=== PATIENT | female | born 1950 | race Caucasian/White ===

== ENCOUNTER → 2016-12-13 | Outpatient (CLI) | payer MEDICARE, OTHER ==
[~2016-12-13] MED LIST: ACETAMINOPHEN PO; ACETAMINOPHEN650 M1 PO; ALBUTEROL0.83 MG/ML NEB; AMLODIPINE BESY10 MG PO; AMLODIPINE BESYL5 MG PO; APAP325 MG PO; ASPIRIN81 M1 PO; BISACODYL10 MG/SUP3 RC; BISACODYL10 MG/SUPP; BONIVA150 MG PO; BUDESONIDE; BUDESONIDE0.5 MG/2 M INH; CALCIMAR200 IU/ML; CALCITRIOL 0.25 MCG; CALCITRIOL0.25 MCG PO; CALCITRIOL0.5 MCG PO; CALCIUM CA500 MG/5 M PO; CALCIUM CARB SUSP; CARBATROL300 MG; CARDURA1 M1; CARDURA1 MG PO; CATAPRES; CATAPRES-TTS-20.2 MG PO; CATAPRES0.1 MG PO; CENTRUM PO; CLEOCIN T60 GM TP; CLEOCIN-T60 GM EXT; CLONIDINE; CLONIDINE PO; CRANBERRY 425 MG; CRANBERRY400 M1 PO; DIPHENHYDRAMINE; DOXAZOSIN MESYLA1 MG PO; DRISDOL; DULCOLAX10 MG/SUPP PR; FAST RELIEF LAX10 MG PR; FAST RELIEF LAX10 MG RC; FERROUS SUL GT; FISH OIL 1,0001 EAC1 PO; FLONASE ALLERG9.9 ML; FLONASE16 GM; FORTEO2.4 ML SQ; GAS RELIEF40 MG/0.1 PO; GAS RELIEF40 MG/0.2 PO; GAS RELIEF40 MG/0.6; GENTLE LAXATIVE10 MG RC; HCTZ PO; IPRAT-ALBUT 0.5-3 ML IH; KCL PO; KEFLEX; LACTULOSE10 G/15 ML PO; LAMICTAL100 MG PO; LAMICTAL25 MG PO; LAMICTAL5 MG PO; LASIX20 MG PO; LEVOTHYROXINE150 MCG PO; LEVOXYL150 MC1 PO; LIPITOR20 MG DOB; LIPITOR20 MG PO; LIPITOR40 MG PO; LOPRESSOR PO; METFORMIN; METOPROLOL TAR100 MG PO; METOPROLOL TAR25 MG PO; METOPROLOL TART25 MG PO; MEVACOR PO; MIACALCIN4 ML; MIRALAX17 G2 PO; MIRALAX17 GM PO; MIRALAX255 GM; MIRALAX255 GM PO; MONTELUKAST SOD10 MG PO; MULTI-VITAMIN1 TAB; MYLANTA400 MG; MYLICON40 MG/0.1 PO; NAPROSYN500 MG PO; NEURONTIN PO; NEURONTIN100 MG PO; NORVASC; NORVASC10 MG PO; NYSTATIN5 ML PO; OMEGA 3 FISH OI1 CAP; OMEGA 3 FISH OI1 CAP PO; OXYGEN INH; PATADAY2.5 ML OP; PATANOL5 ML; POLYETHYLENE GLY1 G1 MC; POT CHLORIDE; POTASSIUM CHLO10 ME1 PO; PRILOSEC PO; PRILOSEC20 M1 PO; PROBIOTIC1 EACH PO; PULMICORT1 MG/2 ML IH; ROCALTROL0.5 MCG PO; SENNA CONCENTR8.6 MG PO; SENNA LAXATIVE8.6 M1 PO; SENNA PO; SENNA S TABLET1 TAB; SENNA8.6 M1 PO; SINGULAIR; SINGULAIR PO; SMZ-TMP PO; SYNTHROID; SYNTHROID PO; SYNTHROID175 MCG PO; SYNTHROID25 MCG PO; THERA M PLUS1 UDTA1 PO; THERAGRAN1 TAB; TRIPLE ANTIBIOT28 G1 TP; TRIPLE ANTIBIOT28 GM TP; UNITHROID150 MCG PO; VITAMIN C500 M1 PO; VITAMIN D1000 UNIT; VITAMIN D35000 UNI1 PO; VITAMIN D50000 UNIT PO; ZANTAC150 M1 PO; ZESTRIL2.5 M1 PO; ZESTRIL2.5 MG PO; ZYRTEC; ZZ-IMMUNOTHERAPY
[2016-12-13 18:20] LABS: BLOOD UREA NITROGEN 30 mg/dL (9-23); BUN/CREATININE RATIO 33.33; CALCIUM SERUM 9.5 mg/dL (8.4-10.2); CARBON DIOXIDE 28 mmol/L (22-31); CHLORIDE 104 mmol/L (100-111); CREATININE SERUM 0.9 mg/dL (0.6-1.4); GLOM FILT RATE Estimated ABOVE60 mL/min (>60); GLUCOSE FASTING 119 mg/dL (70-110); POTASSIUM 4.2 mmol/L (3.5-5.1); SODIUM 138 mmol/L (135-145)
== END | disposition home or self-care (01) ==
LOC: CHAZ 17:27
PROVIDERS: Internal Medicine
DX: E87.5 Hyperkalemia (principal)
CPT/HCPCS: 36415; 80048

== ENCOUNTER 2017-02-24 07:19 | Inpatient (IN) | payer MEDICARE, OTHER ==
--- NOTE | ~2017-02-24 | CR72 ---
[facility] A Service of [facility] & [facility] RADIOLOGY TEXT RESULTS PATIENT: SHAWNA TREVINO LOCATION: [facility] [id number] : 50 UNIT #: [id number] AGE: [address]: Mandeep Kline MD SEX: F ORDER DR: [id number] [facility] [address] [place], [place] [address] [id number] E MR#: [id number] Acc #: [id number] NAME: SHAWNA TREVINO : 1950 SEX: F STUDY DATE/TIME: 02/24/2017 8:08 UNIT: [facility] ROOM: STUDY DESCRIPTION: CR Chest Single View Portable Attending Physician: Delano Cole M.D. Ordering Physician: Delano Cole M.D. Primary Care Physician: Geraldine Lopez D.O. MEDICAL IMAGING REPORT This report is preliminary unless electronic signature is present EXAM Portable chest, 02/24 INDICATION Fever, hypoxia with a wet cough and that started 1 day ago. FINDINGS AP portable chest is compared with 11/06/2014. Lung volumes remain low. There is continued elevation of the left hemidiaphragm. Heart size is stable. There is some mild vascular congestion with chronic atelectasis in the bases. No pneumothorax. IMPRESSION Stable low-volume inspiration with chronic elevation of the left hemidiaphragm. There is chronic atelectasis in the bases and there is a mild degree of vascular congestion today. Dictated by... Alberto Wells Jr., M.D. THIS IS AN ELECTRONICALLY VERIFIED REPORT Alberto Wells Jr., M.D. at 02/24/2017 4:47 PM BILLY/brook TD: 02/24/2017 09:34 JOB #: [id number] MEDICAL IMAGING REPORT Page 1 of 1 COPY
--- NOTE | ~2017-02-24 | CO ---
Unit #: [id number] #: [id number] Patient: SHAWNA TREVINO [id number] [facility]. [place], [place] [address] [id number] I MR#: [id number] NAME: SHAWNA TREVINO ROOM: [facility] Age: 66 Sex: F Admission Date: 02/24/2017 : 1950 Attending Physician: Mandeep Kline M.D. Primary Care Physician: Geraldine Lopez D.O. CONSULTATION REPORT HISTORY OF PRESENT ILLNESS She is a 66-year-old [facility]. Apparently, she had become more congested, short of breath with low oxygen saturations and was sent here to the emergency room at [facility] and has been admitted for possible pneumonia. Chest x-ray shows low lung volumes, possibly some mild interstitial infiltrates. Arterial blood gases revealed pH 7.44, pCO2 of 45, pO2 of 50 on 3 L. Chemistries were unremarkable. BNP was 60. Lactic acid level was 0.7. Coagulation studies were normal. White blood cell count was 8800, hematocrit was 43.1, platelet count was 131,000. PAST MEDICAL HISTORY Profound mental retardation, thrombophilia, history of recurrent urinary tract infections, history of hypertension, hypothyroidism, history of elevated LFTs, history of gastritis in the past, history of horseshoe kidney with kidney stones. HOME MEDICATIONS Norvasc, atorvastatin, bisacodyl, calcitriol, clonidine, doxazosin, fish oil, Neurontin, Gas Relief, Synthroid, lisinopril, metoprolol, Singulair, polyethylene glycol, Zantac, senna, Thera/beta carotene, vitamin D3, budesonide nebulizer b.i.d., albuterol q.i.d. as needed. ALLERGIES Invanz, penicillin, Macrodantin. SOCIAL HISTORY Resident of a [facility], had been in [place]. FAMILY HISTORY Unknown, the patient is nonverbal. REVIEW OF SYSTEMS Unobtainable, the patient is nonverbal. PHYSICAL EXAMINATION GENERAL: White female, lying in bed, in no distress, wearing supplemental oxygen. VITAL SIGNS: Blood pressure is 95/55, pulse 61, respiratory rate 16, afebrile. HEENT: Normocephalic and atraumatic. Pupils are round and reactive. Sclerae nonicteric. Nasal passages patent. She appears to be edentulous, does not open mouth at request. NECK: Supple. Trachea midline. LUNGS: Scattered rhonchi. Unit #: [id number] #: [id number] Patient: SHAWNA TREVINO CARDIAC: Regular rate and rhythm. Could not appreciate murmur, rub, or gallop. ABDOMEN: Nontender. Bowel sounds present. G-tube in place. No hepatosplenomegaly. EXTREMITIES: With trace edema. Some deformities. SKIN: Warm and dry. PSYCHIATRIC: Affect calm. DIAGNOSTIC STUDIES LABORATORY RESULTS: Reviewed, as noted. IMPRESSION 1. Acute hypoxemic respiratory failure. 2. Possible healthcare acquired pneumonia, gram-negative for methicillin-resistant Staphylococcus aureus likely aspiration related. 3. History of recurrent aspiration, requiring gastrostomy tube. 4. History of urinary tract infections. 5. Hypertension. 6. Hypothyroidism. 7. History of gastritis. PLAN We will cover with broad-spectrum antibiotics. Recheck chest x-ray in the morning. Check procalcitonin levels. O2 to maintain adequate saturations. Further recommendations pending this. Dictated by... Kya Gaspar/cheri TD: 02/25/2017 04:09 JOB #: [id number] CONSULTATION REPORT Page 1 of 1 X Neal Alegria MD X CONSULTATION REPORT
--- NOTE | ~2017-02-24 | XA166 ---
[facility] A Service of [facility] & [facility] RADIOLOGY TEXT RESULTS PATIENT: SHAWNA TREVINO LOCATION: C3A 315- : [birth year] UNIT #: [id number] AGE: [address]: Mandeep Kline MD SEX: F ORDER DR: [id number] [facility]. [place], [place] [address] [id number] I MR#: [id number] Acc #: [id number] NAME: SHAWNA TREVINO : 1950 SEX: F STUDY DATE/TIME: 02/25/2017 13:30 UNIT: [facility] PCU ROOM: [facility] STUDY DESCRIPTION: XA PICC Line Placement WO Port Attending Physician: Mandeep Kline M.D. Ordering Physician: Mandeep Kline M.D. Primary Care Physician: Geraldine Lopez D.O. MEDICAL IMAGING REPORT This report is preliminary unless electronic signature is present EXAM XA PICC line placement without port. DATE OF EXAM 02/25/2017 INDICATION IV access. PRE-PROCEDURE The procedure was explained to the patient and/or patient commercial representative including risks, benefits, potential complications and potential for alternative forms of treatment. Informed consent was obtained, and prior to initiating the procedure a formal timeout procedure was performed. PROCEDURE Using full standard sterile barrier technique, including caps, gowns, gloves, masks, as well as sterile skin preparation and standard sterile draping, the left arm (basilic vein) was prepped and draped in the usual fashion, and real-time sterile ultrasound guidance was used to localize an arm vein and to confirm vessel patency. A hard copy ultrasound image was recorded. After local anesthesia with 1% Xylocaine, the vein was punctured using real-time sterile ultrasound guidance, and an 0.018 guidewire was advanced into the superior vena cava, using fluoroscopic guidance. A 5-Mauritian double-lumen PICC was then measured and deployed with the tip positioned in the superior vena cava. The position of the line was documented with a radiographic image. The line was secured in place with an adhesive dressing and an antibiotic patch was applied. Total fluoro time was 2.1 minutes. The Reference air kerma is 9 mGy. Initial attempt was made to place a right-sided PICC line. The right [facility] A Service of [facility] RADIOLOGY TEXT RESULTS PATIENT: SHAWNA TREVINO LOCATION: [facility] 315-01 : [birth year] UNIT #: [id number] AGE: [address]: Mandeep Kline MD SEX: F ORDER DR: basilic vein was initially accessed, however, the guidewire buckled near the axilla. 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 If subsequent future PICC lines are needed, the patient is not a candidate for a right-sided PICC line due to chronic occlusion, however, at this point in time, she remains a candidate for a left-sided PICC line. IMPRESSION Successful placement of a 5-Mauritian double-lumen PowerPICC via the left arm (basilic vein) under ultrasound and fluoroscopic guidance. The tip of the PICC is in good position in the superior vena cava. A single fluoroscopic spot image was obtained. Dictated by... Todd Myers M.D. THIS IS AN ELECTRONICALLY VERIFIED REPORT Todd Myers M.D. at 02/26/2017 4:53 PM Bryan TD: 02/25/2017 20:05 JOB #: [id number] MEDICAL IMAGING REPORT Page 1 of 1 COPY
--- NOTE | ~2017-02-24 | EKG ---
PATIENT: SHAWNA TREVINO UNIT #: [id number] Ventricular Rate: 67 BPM Atrial Rate: 67 BPM P-R Interval: 202 ms QRS Duration: 86 ms Q-T Interval: 390 ms QTC Calculation(Bezet): 412 ms P [place]: -2 degrees Calculated R [place]: 3 degrees Calculated T [place]: 44 degrees Diagnosis Line: Normal sinus rhythm Diagnosis Line: Low voltage QRS Diagnosis Line: Otherwise normal ECG Diagnosis Line: When compared with ECG of 03-NOV-2014 09:55, Diagnosis Line: No significant change was found Diagnosis Line: Confirmed by NICOLETTE FELIPE MD ([id number]) on 02/25/2017 Diagnosis Line: 9:59:37 AM INTERPRETING MD: DESTINEE DE LEON
--- NOTE | ~2017-02-24 | CT57 ---
[facility] A Service of [facility] & [facility] RADIOLOGY TEXT RESULTS PATIENT: SHAWNA TREVINO LOCATION: [facility] [address]-30 : [birth year] UNIT #: [id number] AGE: [address]: Mandeep Kline MD SEX: F ORDER DR: [id number] [facility] [address] [place], [place] [address] [id number] I MR#: [id number] Acc #: [id number] NAME: SHAWNA TREVINO : 1950 SEX: F STUDY DATE/TIME: 02/24/2017 UNIT: [facility] ROOM: [id number] STUDY DESCRIPTION: CT Chest Wo Cont Attending Physician: Mandeep Kline M.D. Ordering Physician: Ashish Serrato M.D. Primary Care Physician: Geraldine Lopez D.O. MEDICAL IMAGING REPORT This report is preliminary unless electronic signature is present EXAM CT chest without contrast 02/24/2017 12:12 hours HISTORY 66-year-old with acute hypoxic respiratory failure today, fever, cough and low oxygen saturation level. COMPARISON Chest CT 10/16/2014 and chest x-ray 02/24/2017 TECHNIQUE Helical noncontrasted images were obtained from the thoracic inlet through the adrenal glands. Sagittal and coronal reconstructions were performed. Total exam DLP 749 mGy-cm. The CT exam was performed with one or more of the following radiation dose reduction techniques: automatic exposure control, adjustment of mA and/or kV according to patient size, and iterative reconstruction. FINDINGS Images through the thoracic inlet demonstrate no thyroid mass or supraclavicular adenopathy. Images through the chest demonstrate a tortuous aorta with mild ectasia measuring 3.6 cm similar to prior study. Pulmonary arteries, cardiac chambers and pericardium are normal. The esophagus is normal. There are benign calcified precarinal, subcarinal and right infrahilar nodes without change. The lungs demonstrate calcified granulomata. There is vascular crowding at the bases but no definite evidence of pneumonia, edema or pleural fluid. There is mild right-sided pleural thickening in the mid hemithorax which is felt likely chronic. [facility] A Service of [facility] & [facility] RADIOLOGY TEXT RESULTS PATIENT: SHAWNA TREVINO [facility] [address]-44 : [birth year] UNIT #: [id number] AGE: [address]: Mandeep Kline MD SEX: F ORDER DR: Limited views through the upper abdomen demonstrate pneumobilia which is unchanged. I believe the gallbladder is present with calcifications at the fundus of the gallbladder partially demonstrate on this exam but degraded by motion. This could indicate the presence of underlying gallstone or partial calcification of the gallbladder wall. A gastrostomy tube is present within the stomach. IMPRESSION 1. There is ectasia of the ascending aorta measuring up to 3.6 cm unchanged. 2. Stable elevation of the left hemidiaphragm with no acute pulmonary or pleural findings. There is underlying benign calcified granulomatous change. 3. There is stable pneumobilia. 4. There is calcification at the fundus of the gallbladder which could represent calcified stone or partial calcification of the gallbladder wall which is favored. There is motion artifact on the images through the upper abdomen and this is difficult to assess. It is felt likely to be present on 10/16/2014 as well. 5. Gastrostomy tube is well positioned within the stomach. Dictated by... Aleshia Santizo M.D. THIS IS AN ELECTRONICALLY VERIFIED REPORT Aleshia Santizo M.D. at 02/24/2017 2:29 PM JAHM/divya TD: 02/24/2017 13:58 JOB #: [id number] MEDICAL IMAGING REPORT Page 1 of 1 COPY
--- NOTE | ~2017-02-24 | HP ---
Unit #: [id number] #: [id number] Patient: SHAWNA DILLARD [id number] [address] [address] [id number] I MR#: [id number] NAME: SHAWNA DILLARD ROOM: [facility] Age: 66 Sex: F Admission Date: 02/24/2017 : 1950 Attending Physician: Mandeep Kline M.D. Primary Care Physician: Geraldine Lopez D.O. HISTORY AND PHYSICAL ADMISSION DIAGNOSES 1. Acute hypoxemic respiratory failure. 2. Healthcare-acquired pneumonia. 3. Urinary tract infection. 4. History of mental retardation. 5. History of hypothyroidism. 6. Hypertension. 7. History of thrombophilia. HISTORY OF PRESENT ILLNESS Ms. Dillard is a 66-year-old female, resident of [facility], with a past medical history of mental retardation and thrombophilia, who was brought to the emergency room secondary to increasing upper congestion and dyspnea. Initial evaluation in the emergency room was significant for hypoxemic respiratory failure with a PO2 of 50.5 on ABGs, along with hypercarbic respiratory failure with a PCO2 of 45.4. Chest x-ray was read as atelectasis. However, a clinical diagnosis of healthcare-acquired pneumonia was made secondary to acute hypoxemic respiratory failure, along with clinical findings of some increasing rhonchi on exam. Again, patient is mentally retarded. Therefore, there is no communication available with the patient. She is nonverbal. There is an aide present in the room with limited information. Therefore, I am not able to obtain any further clear history, neither am I able to obtain any review of systems. PAST MEDICAL HISTORY 1. Mental retardation. 2. Respiratory failure in the past. 3. Multiple UTIs. 4. Hypertension. 5. Hypothyroidism. 6. Thrombophilia. 7. Chronically elevated LFTs. 8. Multiple flexion contractures. 9. Dysphagia with PEG tube. HOME MEDICATIONS 1. Amlodipine. 2. Lipitor. 3. Bisacodyl. 4. Calcitriol. 5. Catapres. Unit #: [id number] #: [id number] Patient: DESGROSIELLIER,SHAWNA 6. Doxazosin. 7. Fish oil. 8. Neurontin. 9. Mylicon. 10. Levothyroxine. 11. Zestril. 12. Metoprolol. 13. Singulair. 14. MiraLax. 15. Zantac. 16. Senna. 17. Vitamin D. 18. Pulmicort. ALLERGIES Penicillin, nitrofurantoin, and ertapenem. SOCIAL HISTORY Again, resident of longterm. FAMILY HISTORY Unremarkable. PHYSICAL EXAMINATION GENERAL: Patient is a 66-year-old female in no acute distress. VITAL SIGNS: Blood pressure 146/92, heart rate 84, respirations 20, temperature 100.6, and she is saturating 95% on 4 liters per nasal cannula. HEENT: Head is atraumatic. Pupils equal, round, and reactive to light. Oropharynx is clear. NECK: Supple. No mass, no JVD, no bruits. CHEST: Diminished bilaterally with some increasing rhonchi on the right more than left. CARDIOVASCULAR: S1 and S2. No murmurs. ABDOMEN: Obese, soft, and nontender. Bowel sounds are diminished. LOWER EXTREMITIES: Without any significant cyanosis, clubbing, or edema. There are contractures in both upper and lower extremities. NEUROLOGIC: Unobtainable secondary to patient's previous history of mental retardation. DIAGNOSTIC STUDIES LABORATORY: ABG again shows pH of 7.441, PCO2 of 45.4, and PO2 of 50.5. Chemistry basically unremarkable except for albumin of 3 and alkaline phosphatase of 144. Lactic acid is 0.6. Coagulation panel unremarkable. Set of cardiac enzymes negative. Hematology shows platelets of 131,000, otherwise unremarkable. Urinalysis significant for 3+ leukocyte esterase, positive nitrites, 50-100 WBCs, and 2+ bacteria. Blood culture pending. Urine culture pending. ASSESSMENT AND PLAN 1. Acute hypoxemic, hypercarbic respiratory failure. Continue bronchodilators. Continue oxygen per nasal cannula. Pulmonary follows. 2. Healthcare-acquired pneumonia. Continue IV vancomycin and Azactam per Pulmonary recommendations. 3. Urinary tract infection. Will start her on cefepime. 4. History of mental retardation. 5. Hypertension. Continue home medications. 6. Dyslipidemia. Continue home medications. Unit #: [id number] #: [id number] Patient: SHAWNA DILLARD 7. Hypothyroidism. Continue home Synthroid. 8. Gastrointestinal and deep venous thrombosis prophylaxis with some Pepcid and Lovenox. 1. Dictated by Kya Parra/violeta TD: 02/24/2017 21:46 JOB #: [id number] HISTORY AND PHYSICAL Page 1 of 1 X Mandeep Kline MD X HISTORY AND PHYSICAL
--- NOTE | ~2017-02-24 | DS ---
Unit #: [id number] #: [id number] Patient: SHAWNA TREVINO [id number] [address] [id number] I MR#: [id number] NAME: SHAWNA TREVINO ROOM: [facility] Age: 66 Sex: F Admission Date: 02/24/2017 : 1950 Discharge Date: 03/02/2017 Attending Physician: Mandeep Kline M.D. Primary Care Physician: Geraldine Lopez D.O. DISCHARGE SUMMARY DISCHARGE DIAGNOSES 1. Urinary tract infection. 2. Status post acute respiratory failure. 3. History of mental retardation. 4. Hypertension. 5. History of thrombophilia. 6. Hypothyroidism. DISCHARGE MEDICATIONS 1. Combivent inhaler q.4 hours p.r.n. shortness of air. 2. Pulmicort inhaler b.i.d. 3. Tylenol p.r.n. 4. Neurontin 200 mg t.i.d. 5. Simethicone 40 mg b.i.d. 6. Amlodipine 10 mg daily. 7. Metoprolol 25 mg b.i.d. 8. Bisacodyl 10 mg per rectum daily. 9. MiraLAX 17 gram daily. 10. Senokot 8.6 mg daily. 11. Atorvastatin 40 mg daily. 12. Clonidine 0.2 mg b.i.d. 13. Doxazosin 1 mg daily. 14. Lisinopril 2.5 mg daily. 15. Fish oil. 16. Pepcid 20 mg daily. 17. Singulair 10 mg daily. 18. Synthroid 150 mcg daily. 19. Calcitriol 0.5 mcg p.o. "q.i.d." 20. Vitamin D3 - 5,000 units daily. 21. Aztreonam 2 grams IV t.i.d. Discontinue after completion of today's dose. CONSULTS ON THIS HOSPITAL STAY Dr. Alegria, pulmonary. DIAGNOSTIC STUDIES IMAGING: CT chest without contrast - Ascending aortic ectasia at 3.6 cm. Calcified granulomatous changes. Calcification at the fundus of the gallbladder. Motion artifact. Likely was present at the September 2014 evaluation. Chest x-ray - Unremarkable. LABORATORY: Urine culture - E-coli. Unit #: [id number] #: [id number] Patient: SHAWNA TREVINO HISTORY OF PRESENT HOSPITAL STAY Please refer to H and P done by me for initial presentation on this female. ACTIVE PROBLEMS AND DIAGNOSES ON THIS HOSPITAL STAY UTI. Continue aztreonam. Finish today's dose for a total of 7 days. Afebrile. White count 5.1. Stable. Status post respiratory failure. Stable. Status post evaluation per pulmonary. Continue bronchodilator. History of mental retardation. Hypertension. Stable. History of thrombophilia. Hypothyroidism. Continue home meds. DISPOSITION Going back to [facility]. FOLLOWUP Followup with primary care physician there. Dictated by... Kya Parra/justen TD: 03/02/2017 12:18 JOB #: [id number] DISCHARGE SUMMARY Page 1 of 1 X Mandeep Kline MD X DISCHARGE SUMMARY
[~2017-02-24 07:19] MED LIST changes: -AMLODIPINE BESY10 MG PO; -BUDESONIDE0.5 MG/2 M INH; -DOXAZOSIN MESYLA1 MG PO; -FAST RELIEF LAX10 MG PR; -FISH OIL 1,0001 EAC1 PO; -LEVOXYL150 MC1 PO; -LIPITOR40 MG PO; -MIRALAX17 GM PO; -MYLICON40 MG/0.1 PO; -ROCALTROL0.5 MCG PO; -VITAMIN D35000 UNI1 PO; -ZANTAC150 M1 PO; -ZESTRIL2.5 MG PO
[2017-02-24 08:31] LABS: BASOPHIL% 0.3 % (0-2.5); EOSINOPHIL# 0.1 X10e3 (0-0.7); EOSINOPHIL% 1.7 % (0.0-7.0); HEMATOCRIT 43.1 % (35.0-45.0); HEMOGLOBIN 14.2 gm/dL (12.0-16.0); LYMPHOCYTE# 0.8 X10e3 (1.0-3.5); LYMPHOCYTE% 9.2 % (17.0-45.0); MEAN CELL VOLUME 90.2 FL (83-96); MEAN CORPUSCULAR HEMOGLOBIN 29.7 PG (28-34); MEAN CORPUSCULAR HGB CONC 32.9 g/dL (30-36); MEAN PLATELET VOLUME 7.7 FL (6.5-11.5); MONOCYTE# 1.1 X10e3 (0-1.0); MONOCYTE% 12.3 % (3.0-12.0); NEUTROPHIL# 6.7 X10e3 (1.5-7.1); NEUTROPHIL% 76.5 % (40-75); PLATELET COUNT 131 X10e3 (140-420); RED BLOOD COUNT 4.77 X10e (3.90-5.30); RED CELL DISTRIBUTION WIDTH 14.4 % (11.0-15.5); WHITE BLOOD COUNT 8.8 X10e3 (4.0-10.5)
[2017-02-24 08:32] LABS: DIFF IND NO
[2017-02-24 08:35] LABS: ARTERIAL BLD GAS O2 SATURATION 85.4 % (90.0-100.0); ARTERIAL BLOOD GAS CARBOXY HB 1.1 %sat (0.0-9.0); ARTERIAL BLOOD GAS HCO3 30.9 mmol/L; ARTERIAL BLOOD GAS MET HB 0.6 %sat (0.0-2.0); ARTERIAL BLOOD GAS PCO2 45.4 mmHg (35.0-45.0); ARTERIAL BLOOD GAS pH 7.441 (7.350-7.450)
[2017-02-24 08:36] LABS: ARTERIAL BLOOD GAS ART SITE LEFT BRACHIAL; ARTERIAL BLOOD GAS DELIVERY NASAL CANNULA; ARTERIAL BLOOD GAS PO2 50.5 mmHg (80.0-100); ARTERIAL DRAW? YES
[2017-02-24 08:41] LABS: INFLUENZA A NEG (NEG); INFLUENZA B NEG (NEG)
[2017-02-24 08:44] LABS: PARTIAL THROMBOPLASTIN TIME 26.7 SECONDS (23.5-31.3); PROTHROMBIN TIME (PATIENT) 10.7 SECONDS (9.6-11.5)
[2017-02-24 08:53] LABS: BILIRUBIN, DIRECT 0.1 mg/dL (0.0-0.2); BILIRUBIN,INDIRECT 0.2 mg/dL (0.0-0.9); BILIRUBIN,TOTAL 0.3 mg/dL (0.2-2.0); BUN/CREATININE RATIO 17.77; CALCIUM SERUM 9.2 mg/dL (8.4-10.2); CREATININE SERUM 0.9 mg/dL (0.6-1.4); GLOM FILT RATE Estimated 66.7 mL/min (>60); POTASSIUM 3.7 mmol/L (3.5-5.1); PROTEIN TOTAL SERUM 6.1 g/dL (6.0-8.3)
[2017-02-24 09:11] LABS: POC - CKMB <1.0 ng/mL (0.0-7.9); POC - TROPONIN <0.05 ng/mL (<=0.05)
[2017-02-24 09:32] LABS: URINE SOURCE CLEAN CATCH
[2017-02-24 09:39] LABS: URINE APPEARANCE TURBID; URINE BILIRUBIN NEG (NEG); URINE BLOOD 1+ (NEG); URINE COLOR YELLOW; URINE GLUCOSE NEG (NEG); URINE KETONE NEG (NEG); URINE LEUKOCYTE ESTERASE 3+ (NEG); URINE NITRATE POS (NEG); URINE PH 5.5 (5-8); URINE PROTEIN NEG (NEG); URINE UROBILINOGEN 0.2 MG/DL (NEG)
[2017-02-24 09:42] LABS: CULTURE INDICATED? YES; URINE SQUAMOUS EPITHELIAL CELL MOD /[HPF]
[2017-02-24 09:52] LABS: UWBCS1 AUWI 50-100 (0-5)
[2017-02-24 09:53] LABS: URINE BACTERIA AUWI 2+ (NEGATIVE)
[2017-02-24 10:13] LABS: POC - CKMB <1.0 ng/mL (0.0-7.9); POC - TROPONIN <0.05 ng/mL (<=0.05)
[2017-02-24] MEDS ORDERED: AMLODIPINE BESY10 MG PO (12:22)
[2017-02-24] MEDS ORDERED: LIPITOR40 MG PO (12:22)
[2017-02-24] MEDS ORDERED: FAST RELIEF LAX10 MG PR (12:23)
[2017-02-24] MEDS ORDERED: ROCALTROL0.5 MCG PO (12:24)
[2017-02-24] MEDS ORDERED: CLONIDINE PO (12:24)
[2017-02-24] MEDS ORDERED: DOXAZOSIN MESYLA1 MG PO (12:25)
[2017-02-24] MEDS ORDERED: FISH OIL 1,0001 EAC1 PO (12:26)
[2017-02-24] MEDS ORDERED: NEURONTIN100 MG PO (12:27)
[2017-02-24] MEDS ORDERED: MYLICON40 MG/0.1 PO (12:29)
[2017-02-24] MEDS ORDERED: ZESTRIL2.5 MG PO (12:30)
[2017-02-24] MEDS ORDERED: LEVOXYL150 MC1 PO (12:30)
[2017-02-24] MEDS ORDERED: METOPROLOL TAR25 MG PO (12:31)
[2017-02-24] MEDS ORDERED: SINGULAIR PO (12:31)
[2017-02-24] MEDS ORDERED: MIRALAX17 GM PO (12:32)
[2017-02-24] MEDS ORDERED: SENNA8.6 M1 PO (12:32)
[2017-02-24] MEDS ORDERED: ZANTAC150 M1 PO (12:32)
[2017-02-24] MEDS ORDERED: VITAMIN D35000 UNI1 PO (12:33)
[2017-02-24] MEDS ORDERED: BUDESONIDE0.5 MG/2 M INH (12:34)
[2017-02-26 07:11] LABS: HEMATOCRIT 41.4 % (35.0-45.0); HEMOGLOBIN 13.6 gm/dL (12.0-16.0); MEAN CORPUSCULAR HEMOGLOBIN 29.8 PG (28-34); MEAN CORPUSCULAR HGB CONC 32.8 g/dL (30-36); MEAN PLATELET VOLUME 7.4 FL (6.5-11.5); RED BLOOD COUNT 4.55 X10e (3.90-5.30); RED CELL DISTRIBUTION WIDTH 14.9 % (11.0-15.5); WHITE BLOOD COUNT 7.2 X10e3 (4.0-10.5)
[2017-02-26 08:03] LABS: BUN/CREATININE RATIO 22.5; CALCIUM SERUM 8.5 mg/dL (8.4-10.2); CREATININE SERUM 0.8 mg/dL (0.6-1.4); GLOM FILT RATE Estimated 76.9 mL/min (>60); POTASSIUM 3.4 mmol/L (3.5-5.1)
[2017-02-27 06:24] LABS: BUN/CREATININE RATIO 27.14; CALCIUM SERUM 8.4 mg/dL (8.4-10.2); CREATININE SERUM 0.7 mg/dL (0.6-1.4); GLOM FILT RATE Estimated 90.3 mL/min (>60); MAGNESIUM 1.8 mg/dL (1.6-3.0)
[2017-02-28 05:43] LABS: HEMATOCRIT 40.5 % (35.0-45.0); MEAN CELL VOLUME 91.9 FL (83-96); MEAN CORPUSCULAR HEMOGLOBIN 29.5 PG (28-34); MEAN CORPUSCULAR HGB CONC 32.1 g/dL (30-36); MEAN PLATELET VOLUME 7.5 FL (6.5-11.5); RED BLOOD COUNT 4.4 X10e (3.90-5.30); RED CELL DISTRIBUTION WIDTH 15.1 % (11.0-15.5); WHITE BLOOD COUNT 5.1 X10e3 (4.0-10.5)
[2017-02-28 06:19] LABS: BUN/CREATININE RATIO 31.42; CALCIUM SERUM 8.2 mg/dL (8.4-10.2); CREATININE SERUM 0.7 mg/dL (0.6-1.4); GLOM FILT RATE Estimated 90.3 mL/min (>60); MAGNESIUM 2.2 mg/dL (1.6-3.0); POTASSIUM 3.8 mmol/L (3.5-5.1)
[2017-03-01 08:34] LABS: MAGNESIUM 1.8 mg/dL (1.6-3.0); POTASSIUM 3.6 mmol/L (3.5-5.1)
[2017-03-02 06:33] LABS: HEMATOCRIT 42.1 % (35.0-45.0); HEMOGLOBIN 13.6 gm/dL (12.0-16.0); MEAN CELL VOLUME 91.9 FL (83-96); MEAN CORPUSCULAR HEMOGLOBIN 29.6 PG (28-34); MEAN CORPUSCULAR HGB CONC 32.2 g/dL (30-36); MEAN PLATELET VOLUME 8.1 FL (6.5-11.5); RED BLOOD COUNT 4.58 X10e (3.90-5.30); RED CELL DISTRIBUTION WIDTH 14.8 % (11.0-15.5); WHITE BLOOD COUNT 5.1 X10e3 (4.0-10.5)
[2017-03-02 07:22] LABS: CALCIUM SERUM 8.4 mg/dL (8.4-10.2); CREATININE SERUM 0.8 mg/dL (0.6-1.4); GLOM FILT RATE Estimated 76.9 mL/min (>60); MAGNESIUM 2.2 mg/dL (1.6-3.0); POTASSIUM 4.2 mmol/L (3.5-5.1)
== END 2017-03-02 14:32 | DRG 189 ==
LOC: CED 07:19 → CEDOF 10:35 → C3A PCU 10:35 → CED 10:51 → CEDOF 10:51 → C3A PCU 10:51 → CEDOF 17:39 → C3A PCU 03-02 14:32
PROVIDERS: Emergency Medicine; Hospitalist
PROC: 02HV33Z Insertion of Infusion Device into Superior Vena Cava, Percutaneous Approach (ICD-10-PCS; principal; 2017-02-24)
PROC: B548ZZA Ultrasonography of Superior Vena Cava, Guidance (ICD-10-PCS; 2017-02-24)
DX: J96.01 Acute respiratory failure with hypoxia (principal); E87.0 Hyperosmolality and hypernatremia; D68.59 Other primary thrombophilia; T17.900A Unspecified foreign body in respiratory tract, part unspecified causing asphyxiation, initial encounter; N39.0 Urinary tract infection, site not specified; J96.02 Acute respiratory failure with hypercapnia; B96.89 Other specified bacterial agents as the cause of diseases classified elsewhere; F79 Unspecified intellectual disabilities; I10 Essential (primary) hypertension; E03.9 Hypothyroidism, unspecified; X58.XXXA Exposure to other specified factors, initial encounter; Z93.1 Gastrostomy status; Z88.0 Allergy status to penicillin; Z88.8 Allergy status to other drugs, medicaments and biological substances; Z87.442 Personal history of urinary calculi; Z87.440 Personal history of urinary (tract) infections
CPT/HCPCS: 36415; 36600; 51701; 71010; 71250; 75820; 76937; 77001; 80048; 80076; 81003; 82308; 82553; 82803; 83605; 83735; 83880; 84132; 84484; 85025; 85027; 85610; 85730; 87040; 87086; 87088; 87186; 87804; 93005; 94640; 94760; 96361; 96365; 96366; 99285; J1650; J3370; J3475; Q9967

== ENCOUNTER → 2017-03-12 | Outpatient (CLI) | payer MEDICARE, OTHER ==
[~2017-03-12] MED LIST changes: +AMLODIPINE BESY10 MG PO; +BUDESONIDE0.5 MG/2 M INH; +DOXAZOSIN MESYLA1 MG PO; +FAST RELIEF LAX10 MG PR; +FISH OIL 1,0001 EAC1 PO; +LEVOXYL150 MC1 PO; +LIPITOR40 MG PO; +MIRALAX17 GM PO; +MYLICON40 MG/0.1 PO; +ROCALTROL0.5 MCG PO; +VITAMIN D35000 UNI1 PO; +ZANTAC150 M1 PO; +ZESTRIL2.5 MG PO
--- NOTE | ~2017-03-12 | US17 ---
[facility] A Service of [facility] & [facility] RADIOLOGY TEXT RESULTS PATIENT: SHAWNA TREVINO LOCATION: [facility] : [birth year] UNIT #: [id number] AGE: [address]: Ashish Murrell MD SEX: F ORDER DR: [id number] [place], [place] [address] [id number] O MR#: [id number] Acc #: [id number] NAME: SHAWNA TREVINO : 1950 SEX: F STUDY DATE/TIME: 03/12/2017 14:47 UNIT: [facility] ROOM: STUDY DESCRIPTION: US Breast Bilateral Attending Physician: Ashish Murrell Sr., M.D. Referring Physician: Ashish Murrell Sr., M.D. Ordering Physician: Ashish Murrell Sr., M.D. Primary Care Physician: Geraldine Lopez D.O. MEDICAL IMAGING REPORT This report is preliminary unless electronic signature is present EXAM Bilateral screening breast ultrasound. DATE 03/12/2017 HISTORY 66-year-old [employer] patient presenting for routine breast screening. No documented current complaints. Ultrasound screening was performed due to the patient's inability to tolerate standard screening mammography. COMPARISON Bilateral screening breast ultrasound, 12/28/2012. FINDINGS In the right breast, a hypoechoic, well-circumscribed nodule is seen approximately 1 cm deep to the skin surface at the 11 o'clock axis 7 cm deep to the nipple measuring 4 x 3 x 2 mm. It is not documented or not seen on the 2013 examination. An additional hypoechoic, well-circumscribed, oval nodule is seen in the 11 o'clock axis right breast 13 cm deep to the nipple, approximately 1 cm deep to the skin surface measuring 4 x 1 x 3 mm. It is either new or not seen on the previous 2013 ultrasound. Benign etiology such as a mildly complex cysts are favored. There is either cystic change or a focally dilated short ductal segment of the retroareolar right breast without intraductal nodularity. Within the left breast at approximately the 11 o'clock axis, 15 cm from the nipple, a well-circumscribed oval increased echogenicity 8 x 3 x 7 mm lesion is seen, 15 cm deep to the nipple. Without acoustic shadowing without hypervascularity, and with some enhanced acoustic transmission, favored to represent benign lipoma. No suspicious solid left breast STS. [facility] A Service of [facility] & [facility] RADIOLOGY TEXT RESULTS PATIENT: SHAWNA TREVINO LOCATION: [facility] : [birth year] UNIT #: [id number] AGE: [address]: Ashish Murrell MD SEX: F ORDER DR: nodules are identified. No architectural distortion or suspicious microcalcifications seen within either breast. IMPRESSION BIRADS category 3 F6. Probably benign finding. There are 2 small hypoechoic circumscribed nodules in the 11 o'clock axis of the right breast measuring about 4 mm each. These are favored to represent mildly complex cysts. Diagnostic right breast ultrasound followup in 6 months is recommended to document stability, improvement or resolution of these lesions. Benign finding of lipoma in the left breast. No suspicious abnormalities in the left breast. 6-month followup recommended Patients over the age of 40 are entered into a reminder system with target due date for the next mammogram. A result letter will also be sent to the patient. BIRADS: 3 Probably benign finding; short interval follow-up suggested. Dictated by... Darlene Calvo M.D. THIS IS AN ELECTRONICALLY VERIFIED REPORT Darlene Calvo M.D. at 03/13/2017 2:23 PM NANCY/ariana TD: 03/12/2017 16:42 JOB #: [id number] MEDICAL IMAGING REPORT Page 1 of 1 COPY
== END | disposition home or self-care (01) ==
LOC: CGUS 14:25
DX: Z12.31 Encounter for screening mammogram for malignant neoplasm of breast (principal); N63 Unspecified lump in breast
CPT/HCPCS: 76641

== ENCOUNTER → 2017-03-24 | Outpatient (CLI) | payer MEDICARE, OTHER | END | disposition home or self-care (01) | LOC: CSSDAY 09:00 | DX: M81.0 Age-related osteoporosis without current pathological fracture (principal) | CPT/HCPCS: 96372; J0897 ==

== ENCOUNTER → 2017-04-13 | Outpatient (CLI) | payer MEDICARE, OTHER ==
--- NOTE | ~2017-04-13 | US77 ---
[facility] A Service of [facility] RADIOLOGY TEXT RESULTS PATIENT: SHAWNA TREVINO LOCATION: [facility] : [birth year] UNIT #: [id number] AGE: [address]: Ashish Murrell MD SEX: F ORDER DR: [id number] [facility] [address] [place], [place] [address] [id number] O MR#: [id number] Acc #: [id number] NAME: SHAWNA TREVINO : 1950 SEX: F STUDY DATE/TIME: 04/13/2017 13:40 UNIT: [facility] ROOM: STUDY DESCRIPTION: US Kidney Bilateral Complete Attending Physician: Ashish Murrell Sr., M.D. Referring Physician: Ashish Murrell Sr., M.D. Ordering Physician: Ashish Murrell Sr., M.D. Primary Care Physician: Geraldine Lopez D.O. MEDICAL IMAGING REPORT This report is preliminary unless electronic signature is present EXAM Renal ultrasound 04/13/2017 HISTORY Neurogenic bladder. History of kidney stones, frequent urinary tract infections for 1 year. FINDINGS The right kidney measures 8.2 cm while the left kidney measured 6.6 cm in longitudinal dimensions. There is no evidence of hydronephrosis or nephrolithiasis. No cystic or solid mass lesions were seen on either kidney. Both kidneys demonstrate cortical thinning but there is normal renal cortical echogenicity. Images of the bladder are normal. IMPRESSION 1. Kidneys somewhat small bilaterally. No evidence of hydronephrosis. 2. Images of the bladder are normal. Dictated by... Gigi Farley M.D. THIS IS AN ELECTRONICALLY VERIFIED REPORT Gigi Farley M.D. at 04/14/2017 8:05 AM CHRIS/karon TD: 04/14/2017 06:51 JOB #: [id number] MEDICAL IMAGING REPORT Page 1 of 1 COPY
--- NOTE | ~2017-04-13 | CR7 ---
[facility] A Service of [facility] & [facility] RADIOLOGY TEXT RESULTS PATIENT: SHAWNA TREVINO LOCATION: [facility] : 50 UNIT #: [id number] AGE: [address]: Ashish Murrell MD SEX: F ORDER DR: [id number] [facility] [address] [place], [place] [address] [id number] O MR#: [id number] Acc #: [id number] NAME: SHAWNA TREVINO : 1950 SEX: F STUDY DATE/TIME: 04/13/2017 13:56 UNIT: [facility] ROOM: STUDY DESCRIPTION: CR Abdomen Single AP View Attending Physician: Ashish Murrell Sr., M.D. Referring Physician: Ashish Murrell Sr., M.D. Ordering Physician: Ashish Murrell Sr., M.D. Primary Care Physician: Geraldine Lopez D.O. MEDICAL IMAGING REPORT This report is preliminary unless electronic signature is present EXAM AP of the abdomen INDICATIONS Abdominal pain today and kidney stones. COMPARISON CT abdomen and pelvis 01/29/2015 FINDINGS There is a large calcific stone projecting just to the left of the lumbar spine, which likely represents a large stone within the left renal pelvis of the patient's known horseshoe kidney. A gastrostomy tube is in place. The bowel gas pattern is nonobstructed. IMPRESSION Large, 2.7 cm rounded calcification likely representing a large stone within the left renal pelvis of the patient's known horseshoe kidney. Dictated by... Todd Myers M.D. THIS IS AN ELECTRONICALLY VERIFIED REPORT Todd Myers M.D. at 04/14/2017 7:33 AM JERRY/mickey TD: 04/13/2017 22:44 JOB #: [id number] MEDICAL IMAGING REPORT Page 1 of 1 COPY
== END | disposition home or self-care (01) ==
LOC: CGUS 12:45
DX: R10.9 Unspecified abdominal pain (principal); N28.89 Other specified disorders of kidney and ureter
CPT/HCPCS: 74000; 76770

== ENCOUNTER → 2017-04-18 | Outpatient (CLI) | payer MEDICARE, OTHER ==
[2017-04-18 17:17] LABS: BUN/CREATININE RATIO 32.5; CREATININE SERUM 0.8 mg/dL (0.6-1.4); GLOM FILT RATE Estimated 76.9 mL/min (>60); POTASSIUM 4.6 mmol/L (3.5-5.1)
== END | disposition home or self-care (01) ==
LOC: CLAB 16:21
PROVIDERS: Internal Medicine
DX: I10 Essential (primary) hypertension (principal)
CPT/HCPCS: 36415; 80048

== ENCOUNTER → 2017-05-25 | Outpatient (CLI) | payer MEDICARE, OTHER | END | disposition home or self-care (01) | LOC: CRAD 09:59 | DX: R13.10 Dysphagia, unspecified (principal); K21.9 Gastro-esophageal reflux disease without esophagitis | CPT/HCPCS: 74230; 92611; G8996-GN; G8997-GN; G8998-GN ==

== ENCOUNTER → 2017-05-28 | Outpatient (CLI) | payer MEDICARE, OTHER ==
[2017-05-03 07:24] LABS: BASOPHIL% 0.2 % (0-2.5); EOSINOPHIL# 0.1 X10e3 (0-0.7); EOSINOPHIL% 0.6 % (0.0-7.0); HEMATOCRIT 42.5 % (35.0-45.0); HEMOGLOBIN 13.9 gm/dL (12.0-16.0); LYMPHOCYTE% 21.2 % (17.0-45.0); MEAN CELL VOLUME 92.9 FL (83-96); MEAN CORPUSCULAR HEMOGLOBIN 30.4 PG (28-34); MEAN CORPUSCULAR HGB CONC 32.8 g/dL (30-36); MONOCYTE% 10.2 % (3.0-12.0); NEUTROPHIL# 6.4 X10e3 (1.5-7.1); NEUTROPHIL% 67.8 % (40-75); PLATELET COUNT 197 X10e3 (140-420); RED BLOOD COUNT 4.58 X10e (3.90-5.30); RED CELL DISTRIBUTION WIDTH 14.3 % (11.0-15.5); WHITE BLOOD COUNT 9.4 X10e3 (4.0-10.5)
[2017-05-03 07:29] LABS: DIFF IND NO
[2017-05-03 07:37] LABS: BILIRUBIN,TOTAL 0.3 mg/dL (0.2-2.0); CALCIUM SERUM 8.2 mg/dL (8.4-10.2); CREATININE SERUM 0.9 mg/dL (0.6-1.4); GLOM FILT RATE Estimated 66.7 mL/min (>60); POTASSIUM 3.9 mmol/L (3.5-5.1)
--- NOTE | ~2017-05-28 | CT4 ---
[facility] A Service of [facility] & [facility] RADIOLOGY TEXT RESULTS PATIENT: SHAWNA TREVINO [facility] : 50 UNIT #: [id number] AGE: [address]: Ashish Murrell MD SEX: F ORDER DR: [id number] [facility] [address] [place], [place] [address] [id number] O MR#: [id number] Acc #: [id number] NAME: SHAWNA TREVINO : 1950 SEX: F STUDY DATE/TIME: 05/28/2017 13:04 UNIT: [facility] ROOM: STUDY DESCRIPTION: CT Abd and Pelv Wo Cont Attending Physician: Ashish Murrell Sr., M.D. Referring Physician: Ashish Murrell Sr., M.D. Ordering Physician: Ashish Murrell Sr., M.D. Primary Care Physician: Ashish Murrell Sr., M.D. MEDICAL IMAGING REPORT This report is preliminary unless electronic signature is present EXAM CT abdomen and pelvis without contrast INDICATIONS Renal calculi and generalized abdominal pain for the past 2 months. [place] patient. PROCEDURE Unenhanced CT of the abdomen and pelvis. This CT exam was performed with one or more of the following radiation dose reduction techniques: automatic exposure control, adjustment of mA and/or kV according to patient size, and iterative reconstruction. COMPARISON 01/29/2015 FINDINGS Abdomen without contrast: Redemonstration of pneumobilia. Otherwise the liver and spleen are unremarkable. Horseshoe configuration of the kidneys. A dominant calculus in the left renal pelvis measures 2.4 cm. There is a 5 mm calculus in the distal left ureter. No significant hydronephrosis. Thickening of the left renal pelvis suggesting inflammation. Adrenal glands, pancreas have an unremarkable unenhanced appearance. Percutaneous gastrostomy tube is seen in the stomach. Moderate colonic stool burden. Appendix is normal. The bowel loops are nondilated. Pelvis without contrast: No radiodense bladder calculus. No pelvic mass. No aggressive appearing bone lesion. IMPRESSION 1. Horseshoe configuration of the kidneys with a large 2.4 cm calculus [facility] A Service of [facility] & [facility] RADIOLOGY TEXT RESULTS PATIENT: SHAWNA TREVINO LOCATION: [facility] : 50 UNIT #: [id number] AGE: [address]: Ashish Murrell MD SEX: F ORDER DR: in the left renal pelvis. It is larger than on the previous study. There is evidence for inflammation of the left renal pelvis but no significant hydronephrosis. 2. A 5 mm calculus in the distal left ureter. 3. Moderate to moderately large colonic stool burden. Dictated by... Man Schwab M.D. THIS IS AN ELECTRONICALLY VERIFIED REPORT Man Schwab M.D. at 06/01/2017 11:07 AM EED/kan TD: 05/28/2017 20:24 JOB #: [id number] MEDICAL IMAGING REPORT Page 1 of 1 COPY
== END | disposition home or self-care (01) ==
LOC: CCAT 05-08 09:00
PROVIDERS: Internal Medicine
DX: E87.5 Hyperkalemia (principal); E16.2 Hypoglycemia, unspecified
CPT/HCPCS: 74176; 80053; 83880; 85025